=== PATIENT | female | born 1930 | race Caucasian/White ===

== ENCOUNTER 2018-07-15 11:00 | Inpatient (IN) | payer OTHER ==
[~2018-07-15] VITALS: Ht 152.4 cm; Wt 29.2 kg
[2018-07-15 11:12] VITALS: Ht 152.4 cm; Wt 29.2 kg
[2018-07-15] MEDS ORDERED: GOOD SENSE OMEP20 MG PO (11:33)
[2018-07-15] MEDS ORDERED: TRAMADOL HCL50 MG PO (11:33)
[2018-07-15] MEDS ORDERED: PREDNISONE2.5 MG PO (11:33)
[2018-07-15 12:09] LABS: CALCIUM 8.7 mg/dL (8.5-10.1); CARBON DIOXIDE 39.6 mmol/L (21-32); CHLORIDE SERUM 103 mmol/L (98-107); CREATININE SERUM 0.5 mg/dL (0.6-1.0); GLUCOSE SERUM 161 mg/dL (74-106); POTASSIUM SERUM 3.8 mmol/L (3.5-5.1); SODIUM SERUM 143 mmol/L (136-145)
[2018-07-15 12:13] LABS: BASOPHIL % 0.3 % (0-2); PLATELET COUNT 181 x10^3mcL (130-400)
[2018-07-15 12:14] LABS: ALKALINE PHOSPHATASE 62 U/L (46-116); ALT/SGPT 29 U/L (14-59); AST/SGOT 29 U/L (15-37); BILIRUBIN TOTAL 0.4 mg/dL (0.20-1.00); LIPASE 113 IU/L (73-393); TOTAL PROTEIN, SERUM 7.1 g/dL (6.4-8.2)
[2018-07-15 12:15] LABS: ALBUMIN 2.5 g/dL (3.4-5.0); RED CELL DISTRIBUTION WIDTH 14.9 % (11.5-14.5)
[2018-07-15 15:23] VITALS: BP 109/58
[2018-07-15 16:36] VITALS: BP 98/60
[2018-07-15 16:40] VITALS: BP 139/57
[2018-07-15 20:13] VITALS: BP 106/57
[2018-07-16 06:04] VITALS: BP 116/65
[2018-07-16 06:28] LABS: BASOPHIL % 0.2 % (0-2); PLATELET COUNT 180 x10^3mcL (130-400)
[2018-07-16 06:40] LABS: RED CELL DISTRIBUTION WIDTH 14.8 % (11.5-14.5)
[2018-07-16 08:38] LABS: CALCIUM 8.6 mg/dL (8.5-10.1); CHLORIDE SERUM 104 mmol/L (98-107); CREATININE SERUM 0.4 mg/dL (0.6-1.0); GLUCOSE SERUM 85 mg/dL (74-106); POTASSIUM SERUM 3.4 mmol/L (3.5-5.1); SODIUM SERUM 142 mmol/L (136-145)
[2018-07-16 09:47] VITALS: BP 113/61
[2018-07-16 14:07] VITALS: BP 120/58
[2018-07-16 17:12] VITALS: BP 119/59
[2018-07-16 21:48] VITALS: BP 106/51
[2018-07-17 06:33] VITALS: BP 120/55
[2018-07-17 06:41] LABS: PLATELET COUNT 180 x10^3mcL (130-400)
[2018-07-17 06:50] LABS: CALCIUM 8.5 mg/dL (8.5-10.1); CARBON DIOXIDE 35.7 mmol/L (21-32); CHLORIDE SERUM 107 mmol/L (98-107); CREATININE SERUM 0.4 mg/dL (0.6-1.0); GLUCOSE SERUM 138 mg/dL (74-106); POTASSIUM SERUM 3.7 mmol/L (3.5-5.1); SODIUM SERUM 146 mmol/L (136-145)
[2018-07-17 06:59] LABS: RED CELL DISTRIBUTION WIDTH 15.4 % (11.5-14.5)
[2018-07-17 10:11] VITALS: BP 107/52
[2018-07-17 11:01] VITALS: BP 107/52
[2018-07-17 11:58] LABS: BAND NEUTROPHIL 4 % (0-10); BASOPHIL 0 % (0-2); MONOCYTE 6 % (0-7); SEGMENTED NEUTROPHILS 81 % (37-75)
[2018-07-17 11:59] LABS: PLATELET MORPHOLOGY LARGE PLATELET SEEN; rbc morphology (normal/abnorm) ABNORMAL (NORMAL); tear drop cell (dacryocyte) 1+
== END 2018-07-17 13:30 | disposition hospice, home (50) | DRG 177 ==
LOC: ED 11:00 → DU 14:09
PROVIDERS: Emergency Medicine; Internal Medicine
DX: J69.0 Pneumonitis due to inhalation of food and vomit (principal); J96.21 Acute and chronic respiratory failure with hypoxia; J96.22 Acute and chronic respiratory failure with hypercapnia; E43 Unspecified severe protein-calorie malnutrition; J44.1 Chronic obstructive pulmonary disease with (acute) exacerbation; R64 Cachexia; E86.0 Dehydration; R55 Syncope and collapse; R62.7 Adult failure to thrive; J84.10 Pulmonary fibrosis, unspecified; K21.9 Gastro-esophageal reflux disease without esophagitis; Z68.20 Body mass index [BMI] 20.0-20.9, adult; Z99.81 Dependence on supplemental oxygen; Z66 Do not resuscitate
CPT/HCPCS: 36600; 82962; C9113; J1956; J2060; J2270; J2920; J3490; J7030; J7042; J7620; Q0092